=== PATIENT | male | born 1960 | race Caucasian/White ===

== ENCOUNTER 2023-04-19 06:30 | Day surgery (SDC) | payer BC, OTHER ==
--- NOTE | 2023-04-16 10:51 | RAD REPORT ---
EXAM DESCRIPTION: RAD - Chest Pa And Lat (2 Views) - 04/16/2023 10:35 am CLINICAL HISTORY: Pre op pending heart catheterization Chest pain. COMPARISON: Chest Pa And Lat (2 Views) dated 10/13/2017 TECHNIQUE: PA and lateral views of the chest were obtained. FINDINGS: The lungs are hyperexpanded compatible with COPD. The heart is upper limit of normal in si ze. No fracture or aggressive bony process. IMPRESSION: COPD without acute process identified. The USPSTF recommends annual screening for lung cancer with low-dose CT (LDCT) in adults aged 50 to 80 years who have a 20 pack-year smoking history and currently smoke or have quit within the past 15 years.
[2023-04-16 11:21] LABS: Absolute Lymphocytes (CBC) 2.3 K/uL (0.7-4.9); Hematocrit 47.7 % (39.6-49.0); Lymphocytes % 35.6 % (15.3-44.8); MCV 95.5 fL (80-100); MPV 7.3 fL (7.6-11.3); RBC Red Blood Cell Count 4.99 M/uL (4.33-5.43)
[2023-04-16 11:31] LABS: Protime INR 0.96
[2023-04-16 11:38] LABS: Potassium 4.3 mEq/L (3.5-5.1)
[2023-04-19] MEDS ORDERED: HEPA 1000U/500MLS 2,000 UNIT/1,000 ML BAG IV ONE (06:51)
[2023-04-19] MEDS ORDERED: LIDOCAINE 1% 20 ML MDV ONE (06:51)
[2023-04-19] MEDS ORDERED: NA CHLORIDE 0.9% 500 ML ONE (07:01)
[2023-04-19 07:15] VITALS: TEMP 98
[2023-04-19] MEDS ORDERED: FENTANYL CITR 100 MCG/2 ML ONE (07:16)
[2023-04-19] MEDS ORDERED: VERAPAMIL HCL 10 MG/4 ML VIAL IV ONE (07:17)
[2023-04-19] MEDS ORDERED: CLOPIDOGREL 75 MG TABLET ONE ×2 (07:17→08:20)
[2023-04-19] MEDS ORDERED: ASPIRIN 325 MG TAB ONE ×2 (07:17→08:20)
[2023-04-19] MEDS ORDERED: HEPARIN 5000 UNIT/ML 1 ML VIAL ONE (07:17)
[2023-04-19] MEDS ORDERED: TICAGRELOR 90 MG TABLET PO ONE ×2 (07:17→08:21)
[2023-04-19] MEDS ORDERED: MIDAZOLAM HCL 2 MG/2 ML INJ ONE (07:17)
[2023-04-19] MEDS ORDERED: HEPARIN 10,000 UNIT/10 ML VIAL IV ONE ×2 (07:17→08:21)
[2023-04-19] MEDS ORDERED: NITROGLYCERIN/D5W 25 MG/250 ML BTL IV ONE (07:18)
[2023-04-19] MEDS ORDERED: ATROPINE SULF 1 MG/10 ML SYR IV ONE ×2 (07:18→08:21)
[2023-04-19] MEDS ORDERED: NITROGLYCERIN 100 MCG/ML SYR (for cath lab use only) IV ONE (07:18)
[2023-04-19 10:14] VITALS: BP 105/78; O2SAT 99
--- NOTE | 2023-04-19 12:55 | OP ---
Date of Procedure: 04/19/2023 Surgeon: CINDY SWANN Procedures Performed: 1.Selective coronary angiogram. 2.Left heart catheterization. Indication: Left heart catheterization prior to mitral valve repair surgery. Access: Right radial artery 6-Nepali closed with TR band. Complications: None. Bleeding: Less than 20 mL. Sedation: None. Description Of Procedure: After risks, benefits, alternatives were explained, the patient agreed to procedure and signed informed consent. The patient was brought into the cardiac catheterization [facility], prepped and draped in the usual sterile fashion. Due to low blood pressure, sedation was not given. Then, I accessed right radial artery using pediatric micropuncture kit and ultrasound [employer], placed a 6-Nepali Slender sheath and took 5-Nepali [place] 4.0 catheter into the aortic root over a J-wire and then engaged the left main and took standard views, then the RCA and took standard views. Using same catheter over the wire, the catheter was pushed into the LV, measured LVEDP, pullback di d not record any gradient. Then, I removed the catheter and sheath, placed TR band with good hemosta sis. Findings: 1.Left main; large and normal. 2.LAD; moderate-sized vessel and it is totally normal. Normal diagonal branch. 3.Left circumflex; it is nondominant, moderate-sized and normal. 4.RCA; moderate-sized, dominant and normal. 5.Normal LVEDP between 5 and 8 mmHg. Conclusion: 1.Normal coronary arteries. 2.Normal LVEDP. Recommendation: Proceed with mitral valve repair as scheduled. SR/MODL Voice ID: [id number] Report ID: [id number]
== END 2023-04-19 09:30 | disposition home or self-care (01) ==
LOC: CCL 06:30
PROVIDERS: ATTEND Internal Medicine
PROC: 4A023N7 Measurement of Cardiac Sampling and Pressure, Left Heart, Percutaneous Approach (ICD-10-PCS; principal; 2023-04-19)
PROC: B2111ZZ Fluoroscopy of Multiple Coronary Arteries using Low Osmolar Contrast (ICD-10-PCS; 2023-04-19)
DX: I34.0 Nonrheumatic mitral (valve) insufficiency (principal); I34.1 Nonrheumatic mitral (valve) prolapse; R94.31 Abnormal electrocardiogram [ECG] [EKG]; J45.909 Unspecified asthma, uncomplicated; K21.9 Gastro-esophageal reflux disease without esophagitis; G62.9 Polyneuropathy, unspecified; F41.9 Anxiety disorder, unspecified; F17.220 Nicotine dependence, chewing tobacco, uncomplicated; Z79.899 Other long term (current) drug therapy; Z88.0 Allergy status to penicillin
CPT/HCPCS: 85025; 80048; 36415; 85610; 85730; 71046; 93458; J1644; J2001; J0461 ×2; J7040; J2250; J3010